=== PATIENT | female | born 1985 | race Caucasian/White ===

== ENCOUNTER 2017-07-03 13:32 | Emergency (ER) | payer MEDICAID ==
--- NOTE | 2017-07-03 16:20 | EDM.PDOC ---
ED HPI GENERAL MEDICAL PROBLEM - General Chief Complaint: Upper Extremity Injury/Pain Stated Complaint: pain in area of 5th MCP of L hand Time Seen by Provider: 07/03/17 13:50 Source of Information: Reports: Patient History Limitations: Reports: No Limitations - History of Present Illness INITIAL COMMENTS - FREE TEXT/NARRATIVE: Pt. states that she was "play wrestling" with someone and states that the fingers of her L and were dorsally hyperextended. She states that since this event, shes noticed significant swelling and hematoma to the area. Denies numbness/tingling to the fingers. Denies any injury elsewhere, and is not experiencing any discomfort to the rest of the hand/fingers or wrist and forearm. Location: Reports: Upper Extremity, Left Quality: Reports: Ache, Dull, Sharp, Throbbing Severity: Moderate Improves with: Reports: Rest Worsens with: Reports: Movement Context: Reports: Trauma Associated Symptoms: Reports: No Other Symptoms Left 5-Little finger Pain Score (Numeric/FACES): 5 - Related Data Allergies Allergy/AdvReac Type Severity Reaction Status Date / Time cyclobenzaprine Allergy Swelling Verified 07/03/17 13:42 morphine Allergy Swelling Verified 07/03/17 13:42 Home Meds: Home Meds . [No Known Home Meds] 07/03/17 [History] Past Medical History Psychiatric History: Reports: Anxiety, Depression - Past Surgical History Musculoskeletal Surgical History: Reports: Carpal Tunnel, Other (See Below) Other Musculoskeletal Surgeries/Procedures:: ankle surgery Social & Family History - Tobacco Use Smoking Status *Q: Current Every Day Smoker Years of Tobacco use: 20 Packs/Tins Daily: 0.5 - Recreational Drug Use Recreational Drug Use: No Review of Systems - Review of Systems Review Of Systems: See Below Constitutional: Reports: No Symptoms Musculoskeletal: Reports: Hand Pain, Joint Pain (area if 5th MCP of L hand) Skin: Reports: No Symptoms Neurological: Reports: No Symptoms ED EXAM, GENERAL - Physical Exam Exam: See Below Extremities: Normal Inspection, Normal Capillary Refill, Joint Swelling, Limited Range of Motion Neurological: Alert, Oriented, CN II-XII Intact, Normal Cognition ED TRAUMA EXTREMITY PROCEDURES - Splinting Left 5th Digit Pre-Procedure NV Status: Normal Post-Procedure NV Status: Normal Splint Material: Fiberglass Splint Design: Gutter Applied & Form Fitted By: Provider Provider Post-Splint Application NV Check: NV Status Normal, Good Position Complications: No Course - Vital Signs Last Recorded V/S: Last Vital Signs Temp 37.2 C 07/03/17 13:35 Pulse 74 07/03/17 13:35 Resp 16 07/03/17 13:35 BP 118/62 07/03/17 13:35 Pulse Ox - Orders/Labs/Meds Orders: Active Orders 24 hr Category Date Time Status Hand Comp Min 3V Lt [CR] Stat Exams 07/03/17 13:51 Taken Departure - Departure Time of Disposition: 15:20 Disposition: Home, Self-Care 01 Condition: Good Clinical Impression: Phalanx, proximal fracture of finger Qualifiers: Finger: little finger Fracture type: closed Fracture alignment: nondisplaced Laterality: left - Discharge Information Instructions: Cast or Splint Care, [id number], Finger Fracture Referrals: Jeannie Feliz PA-C [Primary Care Provider] - Forms: ED Department Discharge Additional Instructions: Keep splint on at all times. Tramadol 50mg every 4-6 hours as needed for pain. Ibuprofen 600mg every 6 hours. The clinic will contact you regarding your appointment next week. If you do not hear from them in the next day or so, call [facility] regarding a referral to hand surgery. ED Communication - Discussed Case With (1) Discussed Case With (1): Outpatient Provider - Discussed Case With (2) Discussed Case With (2): Other (Dr. Becerra wants to see pt. next week (on or about 07-06-17). I subsequently called the [facility] and was told that the pt. needed a referral from her PCP. I then contacted Vicky at [facility]- . She will see to it that Jeannie Feliz PA-C will do the referral. Images have been pushed to the [facility].) - Problem List & Annotations (1) Proximal phalanx fracture of finger SNOMED Code(s): 804484160 Code(s): S62.619A - DISP FX OF PROXIMAL PHALANX OF UNSP FINGER, INIT FOR CLOS FX Status: Acute Qualifiers: Finger: little finger Fracture type: closed Fracture alignment: nondisplaced Laterality: left - Problem List Review Problem List Initiated/Reviewed/Updated: Yes - My Orders Last 24 Hours: My Active Orders 07/03/17 13:51 Hand Comp Min 3V Lt [CR] Stat - Assessment/Plan Last 24 Hours: My Active Orders 07/03/17 13:51 Hand Comp Min 3V Lt [CR] Stat Assessment:: fracture of proximal phalynx 5th digit of L hand Plan: Keep splint on at all times. Tramadol 50mg every 4-6 hours as needed for pain. Ibuprofen 600mg every 6 hours. The clinic will contact you regarding your appointment next week. If you do not hear from them in the next day or so, call [facility] regarding a referral to hand surgery.
== END 2017-07-03 15:20 | disposition home or self-care (01) ==
LOC: VM.ED 13:32
DX: S62.617A Displaced fracture of proximal phalanx of left little finger, initial encounter for closed fracture (principal); F17.210 Nicotine dependence, cigarettes, uncomplicated; Z88.8 Allergy status to other drugs, medicaments and biological substances; Z88.5 Allergy status to narcotic agent; X50.1XXA Overexertion from prolonged static or awkward postures, initial encounter; Y93.72 Activity, wrestling
CPT/HCPCS: 29125; 73130-LT; 99283